=== PATIENT | male | born 1940 | race Caucasian/White ===

== ENCOUNTER → 2018-04-22 | Outpatient (CLI) | payer MEDICARE, BC ==
[2018-04-22] MEDS: SOD CHLORIDE 0.9% 100 ML (10:51)
[2018-04-22] MEDS: IOHEXOL 100 ML (10:51)
== END | disposition home or self-care (01) ==
LOC: C/S 09:38
DX: I73.9 Peripheral vascular disease, unspecified (principal); K44.9 Diaphragmatic hernia without obstruction or gangrene; R16.1 Splenomegaly, not elsewhere classified
CPT/HCPCS: 75635